=== PATIENT | female | born 1980 | race Caucasian/White ===

== ENCOUNTER → 2021-06-09 11:38 | Outpatient (BNVA) | payer OTHER, SELFPAY | PROVIDERS: Visit Provider Nurse Practitioner Family | DX: R60.0 Localized edema (principal); I10 Essential (primary) hypertension | CPT/HCPCS: 80053; 80061; 81000; 84443; 84481; 85025 ==

== ENCOUNTER → 2022-07-12 16:46 | Outpatient (BNVA) | payer SELFPAY | PROVIDERS: PCP Family Medicine; Visit Provider Family Medicine | DX: R00.2 Palpitations (principal); I10 Essential (primary) hypertension | CPT/HCPCS: 80048 ==

== ENCOUNTER → 2023-06-05 10:59 | Outpatient (BNVA) | payer SELFPAY | PROVIDERS: PCP Family Medicine; Visit Provider Family Medicine | DX: I10 Essential (primary) hypertension (principal); R73.9 Hyperglycemia, unspecified; R25.2 Cramp and spasm; E83.42 Hypomagnesemia | CPT/HCPCS: 80053; 80061; 83735; 84443; 85027 ==

== ENCOUNTER 2023-12-24 06:00 | Outpatient (CLI) | payer OTHER, SELFPAY | END 2023-12-24 06:01 | disposition home or self-care (01) | LOC: RAD 01-09 14:12 | PROVIDERS: PCP Family Medicine; Visit Provider Family Medicine | DX: E55.9 Vitamin D deficiency, unspecified (principal); I10 Essential (primary) hypertension; R73.9 Hyperglycemia, unspecified; R25.2 Cramp and spasm; E66.01 Morbid (severe) obesity due to excess calories; Z68.41 Body mass index [BMI] 40.0-44.9, adult | CPT/HCPCS: 83036 ==

== ENCOUNTER → 2023-12-24 10:00 | Outpatient (BNVA) | payer OTHER, SELFPAY | PROVIDERS: PCP Family Medicine; Visit Provider Family Medicine | DX: R79.89 Other specified abnormal findings of blood chemistry (principal); E55.9 Vitamin D deficiency, unspecified; I10 Essential (primary) hypertension; R73.9 Hyperglycemia, unspecified; R25.2 Cramp and spasm; E66.01 Morbid (severe) obesity due to excess calories; Z68.41 Body mass index [BMI] 40.0-44.9, adult; E83.42 Hypomagnesemia | CPT/HCPCS: 80053; 80061; 82306; 82607; 82728; 83540; 83735; 84443; 85027 ==

== ENCOUNTER 2024-01-08 08:08 | Outpatient (CLI) | payer OTHER, SELFPAY ==
--- NOTE | 2024-01-08 08:30 | MM_ITS ---
WS: [id number] VIEWS: MLO and CC views both breasts. 3D digital tomosynthesis is also included in this exam. Baseline study Findings: The breasts are heterogeneously dense, which may obscure small masses. No mass, tumor calcification or architectural distortion. MM/MM scr BI tomosynthesis [id number] Impression: BI-RADS: 2 - Benign FOLLOW-UP: 1 Year Follow-up This mammogram was also analyzed by the Computer Aided Detection System [employer] Tool And Machine Maintainer.
== END 2024-01-08 08:09 | disposition home or self-care (01) ==
LOC: RAD 08:08
PROVIDERS: PCP Family Medicine; Visit Provider Family Medicine
DX: Z12.31 Encounter for screening mammogram for malignant neoplasm of breast (principal)
CPT/HCPCS: 77063; 77067

== ENCOUNTER → 2024-11-03 13:30 | Outpatient (BNVA) | payer OTHER, SELFPAY | PROVIDERS: PCP Family Medicine; Visit Provider Family Medicine | DX: I10 Essential (primary) hypertension (principal); E55.9 Vitamin D deficiency, unspecified; R73.9 Hyperglycemia, unspecified; E66.01 Morbid (severe) obesity due to excess calories; Z68.41 Body mass index [BMI] 40.0-44.9, adult | CPT/HCPCS: 80053; 80061; 82306; 82607; 83036; 84439; 84443 ==